=== PATIENT | female | born 1960 | race Caucasian/White ===

== ENCOUNTER 2017-11-03 05:34 | Inpatient (IN) ==
[2017-11-03] MEDS ORDERED: ceFAZolin 2,000 MG in PREMIX 1 EACH IV ONE (06:00)
[2017-11-03] MEDS ORDERED: VANCOMYCIN INJ 1,000 MG in SODIUM CHLORIDE 0.9% 250 ML IV ONE (06:00)
[2017-11-03] MEDS ORDERED: VANCOMYCIN 1,000 MG VIAL ONE (06:21)
[2017-11-03] MEDS ORDERED: BACITRACIN OINT 0.9 GM PACK TOP ONE (06:35)
[2017-11-03] MEDS ORDERED: DIAZEPAM 5 MG TABLET ONE (06:36)
[2017-11-03] MEDS ORDERED: FAMOTIDINE 20 MG TABLET ONE (06:37)
[2017-11-03] MEDS ORDERED: FAMOTIDINE 20 MG TABLET PO ONE (07:00)
[2017-11-03] MEDS ORDERED: LACTATED RINGERS 1,000 ML IV SCH (07:00)
[2017-11-03] MEDS ORDERED: ALBUTEROL/IPRATROPIUM 3 ML NEB RESP TX ONE (07:00)
[2017-11-03] MEDS ORDERED: DIAZEPAM 5 MG TABLET PO ONE (07:00)
[2017-11-03] MEDS ORDERED: BUPIVACAINE SPINAL 0.75% 2 ML AMP SPINAL ONE (07:06)
[2017-11-03] MEDS ORDERED: MORPHINE 10 MG/10 ML VIAL ONE (07:06)
[2017-11-03] MEDS ORDERED: TRANEXAMIC ACID 1,000 MG/10 ML VIAL ONE (09:33)
[2017-11-03] MEDS ORDERED: tiZANidine 4 MG TABLET PO PRN (09:56)
[2017-11-03] MEDS ORDERED: diphenhydrAMINE CAP 25 MG CAPSULE PO PRN (09:57)
[2017-11-03] MEDS ORDERED: oxyCODONE IR 5 MG TABLET PO PRN ×2 (09:57)
[2017-11-03] MEDS ORDERED: ONDANSETRON 4 MG/2 ML VIAL IV PRN ×2 (09:57→10:12)
[2017-11-03] MEDS ORDERED: ZALEPLON 5 MG CAPSULE PO PRN (09:57)
[2017-11-03] MEDS ORDERED: MORPHINE 4 MG/1 ML VIAL IV PRN (09:57)
[2017-11-03] MEDS ORDERED: MAGNESIUM HYDROXIDE SUSP 30 ML UDCUP PO PRN (09:57)
[2017-11-03] MEDS ORDERED: KETOROLAC 30 MG/1 ML VIAL IV SCH (10:00)
[2017-11-03] MEDS ORDERED: ROPIVACAINE 0.5% 30 ML VIAL ONE (10:05)
[2017-11-03] MEDS ORDERED: MORPHINE 10 MG/1 ML VIAL ONE (10:08)
[2017-11-03] MEDS: MORPHINE 10 MG/1 ML VIAL IV PRN ×4 (10:09→10:40)
[2017-11-03] MEDS ORDERED: SEVOFLURANE 1 UNIT/15 MINUTE INH ONE (10:26)
[2017-11-03] MEDS ORDERED: PROPOFOL 200 MG/20 ML VIAL IV ONE (10:26)
[2017-11-03] MEDS ORDERED: KETAMINE 500 MG/10 ML VIAL ONE (10:27)
[2017-11-03] MEDS ORDERED: MIDAZOLAM 2 MG/2 ML VIAL ONE (10:27)
[2017-11-03] MEDS ORDERED: fentaNYL 100 MCG/2 ML VIAL ONE (10:27)
[2017-11-03] MEDS ORDERED: DEXAMETHASONE 10 MG/1 ML VIAL ONE (10:27)
[2017-11-03] MEDS ORDERED: GLYCOPYRROLATE 0.4 MG/2 ML VIAL ONE (10:28)
[2017-11-03] MEDS ORDERED: NEOSTIGMINE 10 MG/10 ML VIAL ONE (10:28)
[2017-11-03] MEDS ORDERED: ACETAMINOPHEN 1,000 MG/100 ML VIAL IV ONE (10:28)
[2017-11-03] MEDS ORDERED: ROCURONIUM 100 MG/10 ML VIAL IV ONE (10:28)
[2017-11-03] MEDS ORDERED: ALBUTEROL 2.5 MG/3 ML NEB RESP TX PRN (11:30)
[2017-11-03] MEDS: MORPHINE 4 MG/1 ML VIAL IV PRN (12:49)
[2017-11-03] MEDS: LACTATED RINGERS 1,000 ML IV SCH ×3 (12:53→22:40)
[2017-11-03] MEDS: ACETAMINOPHEN 500 MG TABLET PO SCH ×2 (14:02→20:58)
[2017-11-03] MEDS: KETOROLAC 30 MG/1 ML VIAL IV SCH ×3 (14:03→22:40)
[2017-11-03] MEDS: ceFAZolin 2,000 MG in PREMIX 1 EACH IV SCH ×2 (14:10→22:41)
[2017-11-03] MEDS: FAMOTIDINE 20 MG TABLET PO SCH (20:57)
[2017-11-03] MEDS: DOCUSATE SODIUM 100 MG CAPSULE PO SCH (20:58)
[2017-11-03] MEDS: FLUoxetine 20 MG CAPSULE PO SCH (20:58)
[2017-11-03] MEDS: METOPROLOL SUCCINATE XL 50 MG TABLET PO SCH (20:58)
[2017-11-03] MEDS: BUDESONIDE/FORMOTEROL 160-4.5 INHALER 6 GM INH SCH (21:03)
[2017-11-04] MEDS: ACETAMINOPHEN 500 MG TABLET PO SCH ×2 (02:00→08:55)
[2017-11-04] MEDS: FONDAPARINUX 2.5 MG/0.5 ML SYRINGE SUBCUT SCH (04:27)
[2017-11-04] MEDS: KETOROLAC 30 MG/1 ML VIAL IV SCH (04:33)
[2017-11-04 06:45] LABS: Basophils % 0.1 % (0.0-0.8); Hematocrit 28.7 VOL% (35.7-47.0); Hemoglobin 9.7 GM/DL (12.0-16.0); Immature Granulocytes % 0.5 %; Immature Granulocytes Absolute 0.06 #; Lymphocytes # 1.4 10*3/uL (1.4-4.0); Lymphocytes % 11.8 % (21.3-54.2); Mean Corpuscular HGB Conc 33.8 GM/DL (32-36); Mean Corpuscular Hemoglobin 30 PG (27-34); Mean Corpuscular Volume 87.8 FL (87-102); Mean Platelet Volume 10.6 FL (9.6-12.0); Monocytes # 0.9 10*3/uL (0.11-0.8); Neutrophils # 9.9 10*3/uL (1.4-7.4); Neutrophils % 80.6 % (38.7-73.9); Platelet Count 279 T/CUMM (130-400); Red Blood Count 3.27 MC/CUMM (3.8-5.5); Red Cell Distribution Width 12.8 % (9.3-17.3); White Blood Count 12.2 T/CUMM (4-12)
[2017-11-04] MEDS: LACTATED RINGERS 1,000 ML IV SCH (07:08)
[2017-11-04 07:17] LABS: Calcium 8.2 MG/DL (8.5-10.1); Osmolality,Calculated 269.1 MOS/KG (273-304); Potassium 3.3 MMOL/L (3.5-5.1)
[2017-11-04] MEDS: DOCUSATE SODIUM 100 MG CAPSULE PO SCH ×2 (08:56→20:41)
[2017-11-04] MEDS: LISINOPRIL/HCTZ 20-12.5 MG TABLET PO SCH (08:56)
[2017-11-04] MEDS: FAMOTIDINE 20 MG TABLET PO SCH ×2 (08:56→20:41)
[2017-11-04] MEDS: POTASSIUM CHLORIDE 20 MEQ TABLET PO SCH ×2 (08:56→20:41)
[2017-11-04] MEDS: BUDESONIDE/FORMOTEROL 160-4.5 INHALER 6 GM INH SCH ×2 (08:57→20:43)
[2017-11-04] MEDS: CELECOXIB 200 MG CAPSULE PO SCH (17:26)
[2017-11-04] MEDS: MORPHINE 4 MG/1 ML VIAL IV PRN (20:33)
[2017-11-04] MEDS: FLUoxetine 20 MG CAPSULE PO SCH (20:41)
[2017-11-04] MEDS: METOPROLOL SUCCINATE XL 50 MG TABLET PO SCH (20:41)
[2017-11-05] MEDS: FONDAPARINUX 2.5 MG/0.5 ML SYRINGE SUBCUT SCH (05:32)
[2017-11-05 06:54] LABS: Basophils % 0.3 % (0.0-0.8); Eosinophils # 0.2 10*3/uL (0.0-0.87); Eosinophils % 1.5 % (0.00-10.9); Hematocrit 29.2 VOL% (35.7-47.0); Hemoglobin 9.8 GM/DL (12.0-16.0); Immature Granulocytes % 0.5 %; Immature Granulocytes Absolute 0.05 #; Lymphocytes % 19.8 % (21.3-54.2); Mean Corpuscular HGB Conc 33.6 GM/DL (32-36); Mean Corpuscular Hemoglobin 30 PG (27-34); Mean Corpuscular Volume 88.8 FL (87-102); Mean Platelet Volume 10.9 FL (9.6-12.0); Monocytes # 0.9 10*3/uL (0.11-0.8); Monocytes % 8.5 % (1.7-12.7); Neutrophils % 69.4 % (38.7-73.9); Platelet Count 273 T/CUMM (130-400); Red Blood Count 3.29 MC/CUMM (3.8-5.5); Red Cell Distribution Width 13.2 % (9.3-17.3); White Blood Count 10.1 T/CUMM (4-12)
[2017-11-05 07:23] LABS: Calcium 8.6 MG/DL (8.5-10.1); Osmolality,Calculated 276.4 MOS/KG (273-304); Potassium 3.6 MMOL/L (3.5-5.1)
[2017-11-05] MEDS: BUDESONIDE/FORMOTEROL 160-4.5 INHALER 6 GM INH SCH ×2 (08:36→22:09)
[2017-11-05] MEDS: LISINOPRIL/HCTZ 20-12.5 MG TABLET PO SCH (08:36)
[2017-11-05] MEDS: FAMOTIDINE 20 MG TABLET PO SCH ×2 (08:36→21:43)
[2017-11-05] MEDS: DOCUSATE SODIUM 100 MG CAPSULE PO SCH ×2 (08:36→21:43)
[2017-11-05] MEDS: POTASSIUM CHLORIDE 20 MEQ TABLET PO SCH ×2 (08:37→21:43)
[2017-11-05] MEDS: CELECOXIB 200 MG CAPSULE PO SCH (08:37)
[2017-11-05] MEDS: FLUoxetine 20 MG CAPSULE PO SCH (21:43)
[2017-11-05] MEDS: METOPROLOL SUCCINATE XL 50 MG TABLET PO SCH (21:43)
[2017-11-06 04:13] LABS: Basophils % 0.3 % (0.0-0.8); Eosinophils # 0.5 10*3/uL (0.0-0.87); Eosinophils % 5.6 % (0.00-10.9); Hematocrit 27.8 VOL% (35.7-47.0); Hemoglobin 9.3 GM/DL (12.0-16.0); Immature Granulocytes % 0.5 %; Immature Granulocytes Absolute 0.04 #; Lymphocytes % 22.3 % (21.3-54.2); Mean Corpuscular HGB Conc 33.5 GM/DL (32-36); Mean Corpuscular Hemoglobin 30 PG (27-34); Mean Corpuscular Volume 89.1 FL (87-102); Mean Platelet Volume 11.3 FL (9.6-12.0); Monocytes # 0.6 10*3/uL (0.11-0.8); Monocytes % 6.4 % (1.7-12.7); Neutrophils # 5.8 10*3/uL (1.4-7.4); Neutrophils % 64.9 % (38.7-73.9); Platelet Count 269 T/CUMM (130-400); Red Blood Count 3.12 MC/CUMM (3.8-5.5); Red Cell Distribution Width 13.3 % (9.3-17.3); White Blood Count 8.9 T/CUMM (4-12)
[2017-11-06] MEDS: CELECOXIB 200 MG CAPSULE PO SCH (08:44)
[2017-11-06] MEDS: FAMOTIDINE 20 MG TABLET PO SCH (08:44)
[2017-11-06] MEDS: DOCUSATE SODIUM 100 MG CAPSULE PO SCH (08:44)
[2017-11-06] MEDS: LISINOPRIL/HCTZ 20-12.5 MG TABLET PO SCH (08:44)
[2017-11-06] MEDS: POTASSIUM CHLORIDE 20 MEQ TABLET PO SCH ×2 (08:44→08:47)
[2017-11-06] MEDS: BUDESONIDE/FORMOTEROL 160-4.5 INHALER 6 GM INH SCH (08:47)
[2017-11-06 11:04] VITALS: BP 156/86
== END 2017-11-06 14:45 | disposition home health service (06) | DRG 470 ==
LOC: N.OR 05:34 → N.SDSINP 05:36 → N.3E 09:57
PROVIDERS: ADMIT Orthopaedic Surgery; ATTEND Orthopaedic Surgery